=== PATIENT | female | born 1970 | race Two or more races ===

== ENCOUNTER 2018-02-14 22:46 | Emergency (ER) | payer SELFPAY ==
[2018-02-14] MEDS ORDERED: HYDROMORPHONE HCL INJ/PF 2 MG/ML AMPULE IV ONE (23:23)
[2018-02-14] MEDS ORDERED: NORMAL SALINE 1000 ML 1,000 ML IV ONE (23:24)
[2018-02-14] MEDS ORDERED: ONDANSETRON HCL INJ/PF 4 MG/2 ML SDV IV ONE (23:24)
--- NOTE | 2018-02-14 23:27 | ER Document Report ---
ED General - General Chief Complaint: Abdominal Pain Stated Complaint: UPPER ABDOMINAL PAIN Time Seen by Provider: 02/14/18 23:18 Notes: Patient is a pleasant 47-year-old female presents with complaint of epigastric pain she says it feels like pancreatitis. She said the pain for 3 days. She has been very nauseous but has not vomited. She says she has been trying to just the ice cream and nothing else. She has a history of recurrent idiopathic pancreatitis. Last time she had it was in 2011. She does not drink alcohol. She has had a cholecystectomy. She denies any black or tarry stools. She has had some mild diarrhea. No blood in her stool. She does have history of gastric ulcers. She is currently on Zantac for that. No other complaints at this time. TRAVEL OUTSIDE OF THE [place] IN LAST 30 DAYS: No - Related Data Allergies/Adverse Reactions: No Known Allergies Allergy (Verified 06/05/12 16:08) Past Medical History - Social History Smoking Status: Unknown if Ever Smoked Drug Abuse: None Lives with: Alone Family History: Reviewed & Not Pertinent Patient has suicidal ideation: No Patient has homicidal ideation: No Renal/ Medical History: Denies: Hx Peritoneal Dialysis Past Surgical History: Reports: Hx Section - x3 - Immunizations Hx Diphtheria, Pertussis, Tetanus Vaccination: Yes - 2011 Hx Pneumococcal Vaccination: 11/02/00 Review of Systems - Review of Systems Notes: My Normal Review Basic REVIEW OF SYSTEMS: CONSTITUTIONAL : Had some chills at home. EENT: Denies eye, ear, throat, or mouth pain or symptoms. Denies nasal or sinus congestion. CARDIOVASCULAR: Denies chest pain. RESPIRATORY: Denies cough, cold, or chest congestion. Denies shortness of breath, difficulty breathing, or wheezing. GASTROINTESTINAL: Epigastric abdominal pain. Some nausea. GENITOURINARY: Denies difficulty urinating, painful urination, burning, frequency, or blood in urine. FEMALE GENITOURINARY: Denies vaginal bleeding, abnormal or irregular periods. MUSCULOSKELETAL: Denies neck or back pain or joint pain or swelling. SKIN: Denies rash or skin lesions. NEUROLOGICAL: Denies altered mental status or loss of consciousness. Denies headache. Denies weakness or paralysis or loss of use of either side. Denies problems with gait or speech. Denies sensory or motor loss. ALL OTHER SYSTEMS REVIEWED AND NEGATIVE. Physical Exam - Vital signs Vitals: Temp Pulse Resp BP Pulse Ox 98.0 F 96 18 135/63 H 98 02/14/18 22:49 02/14/18 22:49 02/14/18 22:49 02/14/18 22:49 02/14/18 22:49 - Notes Notes: General Appearance: Well nourished, alert, cooperative, no acute distress, moderate obvious discomfort. Vitals: reviewed, See vital signs table. Eyes: PERRL, EOMI, Conjuctiva clear Mouth: No decreasd moisture Lungs: No wheezing, No rales, No rhonci, No accessory muscle use, good air exchange bilaterally. Heart: Normal rate, Regular rythm, No murmur, no rub Abdomen: Normal BS, soft, No rigidity, moderate epigastric abdominal tenderness to palpation., No guarding, no rebound, Extremities: strength 5/5 in all extremities, good pulses in all extremities, no swelling or tenderness in the extremities, no edema. Skin: warm, dry, appropriate color, no rash Neuro: speech clear, oriented x 3, normal affect, responds appropriately to questions. Course - Re-evaluation Re-evalutation: 02/15/18 01:48 Patient's pain is relieved with a GI cocktail. Patient says she just recently moved back here from [place]. I will give referral to GI doctor as I think she will probably benefit from endoscopy as I suspect her pain is either related to a nonbleeding ulcer or gastritis. I suspect is because her lipase and workup for pancreatitis is negative, her pain was relieved with GI cocktail , and she has a history of previous ulcers in the past. She has no evidence of bleeding from the ulcers. Form to return to ER if she has worsening pain, fevers, vomiting blood, or she feels unwell. Patient agrees with plan will be discharged home. Dictation of this chart was performed using voice recognition software; therefore, there may be some unintended grammatical errors. - Vital Signs Vital signs: Temp Pulse Resp BP Pulse Ox 98.0 F 96 18 135/63 H 98 02/14/18 22:49 02/14/18 22:49 02/14/18 22:49 02/14/18 22:49 02/14/18 22:49 - Laboratory Result Diagrams: 02/14/18 23:40 02/14/18 23:40 Laboratory results interpreted by me: 02/14/18 23:40 Sodium 145.2 H Procedures - Additional Procedures peripheral IV Additional Procedures: IV insertion Notes: 02/15/18 01:13 Nursing staff was unable to get a peripheral IV. I placed a peripheral IV in the right antecubital fossa under ultrasound guidance on first attempt. 20- gauge IV Angiocath was placed. Dark nonpulsatile blood was expressed from the IV. IV flushes well without complications. Discharge - Discharge Clinical Impression: Abdominal pain Qualifiers: Abdominal location: epigastric Qualified Code(s): R10.13 - Epigastric pain Condition: Good Disposition: HOME, SELF-CARE Instructions: Oral Narcotic Medication ([facility]) Additional Instructions: Based on your history, lab results, and location of your pain, I suspect your pain is being caused by a gastritis or nonbleeding ulcer. Please take the medications as prescribed. Please continue to take your Zantac at home. Please follow up with the GI doctor (Either Dr. Butterfield or Dr. Lazaro). Please avoid spicy foods, acidic foods, and fatty foods. Please eat a very bland diet. Please return to the ER immediately if you have vomiting of blood, intractable pain, fevers, black stools, or feel unwell. Prescriptions: Tramadol HCl [Ultram 50 mg Tablet] 50 mg PO Q6HP PRN #12 tablet PRN Reason: Sucralfate [Carafate Susp 1 Gm/10 Ml Udcup] 1 gm PO ACHS 10 Days udc Referrals: MARISELA LAZARO MD [ACTIVE STAFF] - Follow up in 3-5 days (call this morning to make a follow up appointment) TERE BUTTERFIELD MD [ACTIVE STAFF] - Follow up in 3-5 days (call this morning to make a follow up appointment)
[2018-02-14 23:50] LABS: ABSOLUTE EOSINOPHILS # (AUTO) 0.2 10^3/uL (0.0-0.6); ABSOLUTE LYMPHOCYTES (AUTO) 3.4 10^3/uL (0.5-4.7); ABSOLUTE MONOCYTES (AUTO) 0.9 10^3/uL (0.1-1.4); ABSOLUTE NEUT (AUTO) 3.3 10^3/uL (1.7-8.2); BASOPHILS % (AUTO) 0.5 % (0-2); EOSINOPHILS % (AUTO) 2.1 % (0-6); HEMATOCRIT 41.2 % (36.0-47.0); HEMOGLOBIN 14.1 g/dL (12.0-15.5); LYMPHOCYTES % (AUTO) 43.9 % (13-45); MEAN CORPUSCULAR HEMOGLOBIN 30.1 pg (27.0-33.4); MEAN CORPUSCULAR HGB CONC 34.2 g/dL (32.0-36.0); MEAN CORPUSCULAR VOLUME 88 fl (80-97); MONOCYTES % (AUTO) 11.2 % (3-13); PLATELET COUNT 278 10^3/uL (150-450); RED BLOOD COUNT 4.67 10^6/uL (3.72-5.28); RED CELL DISTRIBUTION WIDTH 13.4 % (11.5-14.0); SEGMENTED NEUTROPHILS % (AUTO) 42.3 % (42-78); TOTAL CELLS COUNTED % (AUTO) 100 %; WHITE BLOOD COUNT 7.8 10^3/uL (4.0-10.5)
[2018-02-15 00:02] LABS: ALANINE AMINOTRANSFERASE 25 U/L (9-52); ALBUMIN 4.6 g/dL (3.5-5.0); ALKALINE PHOSPHATASE 104 U/L (38-126); ANION GAP 13 (5-19); ASPARTATE AMINO TRANSFERASE 27 U/L (14-36); BILIRUBIN,DIRECT 0.1 mg/dL (0.0-0.4); BILIRUBIN,TOTAL 0.4 mg/dL (0.2-1.3); BLOOD UREA NITROGEN 13 mg/dL (7-20); CALCIUM 9.9 mg/dL (8.4-10.2); CARBON DIOXIDE 27 mmol/L (22-30); CHLORIDE 105 mmol/L (98-107); GLUCOSE 98 mg/dL (75-110); LIPASE 158.2 U/L (23-300); POTASSIUM 3.9 mmol/L (3.6-5.0); SODIUM 145.2 mmol/L (137-145); TOTAL PROTEIN 7.8 g/dL (6.3-8.2)
[2018-02-15] MEDS ORDERED: FENTANYL CITRATE INJ/PF 100 MCG/2 ML AMPUL IV ONE (00:57)
[2018-02-15] MEDS ORDERED: LIDOCAINE 2% VISCOUS SOLN 20 ML UDCUP PO ONE (00:57)
[2018-02-15] MEDS ORDERED: METOCLOPRAMIDE HCL ORAL SOLN 10 MG/10 ML UDCUP PO ONE (00:57)
[2018-02-15] MEDS ORDERED: MAG HYDROX/AL HYDROX/SIMETH SUSP 30 ML UDCUP PO ONE (00:57)
[2018-02-15 02:07] VITALS: BP 126/72
== END 2018-02-15 02:05 | disposition home or self-care (01) ==
LOC: ER 22:46
DX: R10.13 Epigastric pain (principal); R11.0 Nausea; R19.7 Diarrhea, unspecified; Z90.49 Acquired absence of other specified parts of digestive tract; Z79.899 Other long term (current) drug therapy
CPT/HCPCS: 99284; 96361; 96374; 96375; 36415; 83690; 84703; 85025; 80053; J3010; J3490; J1170; J2405; J7030

== ENCOUNTER 2018-03-25 18:39 | Emergency (ER) | payer SELFPAY ==
--- NOTE | 2018-03-25 20:01 | ER Document Report ---
ED Medical Screen (RME) - General Chief Complaint: Abdominal Pain Stated Complaint: STOMACH PAIN Time Seen by Provider: 03/25/18 19:54 Notes: RAPID MEDICAL EVALUATION DISCLOSURE I have seen this patient as part of a Rapid Medical Evaluation and, if applicable, placed any initially appropriate orders. The patient will be seen and fully evaluated, including a full history and physical exam, by a provider ( in Main ED or Fast Track) when a room becomes available. 47-year-old female PMH pancreatitis diverticulosis status post cholecystectomy here with complaints of left upper and lower abdominal pain ongoing for the past 2 weeks progressively worsening. The pain is worse with eating. She has had some nausea but no vomiting diarrhea fevers chills. She wonders if this may be another "diverticulosis flare". EXAM Left lower greater than upper quadrant TTP No epigastric tenderness No peritoneal signs TRAVEL OUTSIDE OF THE [place] IN LAST 30 DAYS: No - Related Data Allergies/Adverse Reactions: No Known Allergies Allergy (Verified 06/05/12 16:08) Past Medical History - Social History Frequency of alcohol use: None Renal/ Medical History: Denies: Hx Peritoneal Dialysis Past Surgical History: Reports: Hx Section - x3 - Immunizations Hx Diphtheria, Pertussis, Tetanus Vaccination: Yes - 2011 Physical Exam - Vital signs Vitals: Temp Pulse Resp BP Pulse Ox 99.3 F 90 16 121/74 100 03/25/18 18:52 03/25/18 18:52 03/25/18 18:52 03/25/18 18:52 03/25/18 18:52 Course - Vital Signs Vital signs: Temp Pulse Resp BP Pulse Ox 99.3 F 90 16 121/74 100 03/25/18 18:52 03/25/18 18:52 03/25/18 18:52 03/25/18 18:52 03/25/18 18:52
[2018-03-25 20:31] LABS: ABSOLUTE BASOPHILS # (AUTO) 0.1 10^3/uL (0.0-0.2); ABSOLUTE EOSINOPHILS # (AUTO) 0.3 10^3/uL (0.0-0.6); ABSOLUTE LYMPHOCYTES (AUTO) 2.9 10^3/uL (0.5-4.7); ABSOLUTE MONOCYTES (AUTO) 0.8 10^3/uL (0.1-1.4); ABSOLUTE NEUT (AUTO) 4.5 10^3/uL (1.7-8.2); BASOPHILS % (AUTO) 0.7 % (0-2); HEMATOCRIT 35.4 % (36.0-47.0); HEMOGLOBIN 12.2 g/dL (12.0-15.5); LYMPHOCYTES % (AUTO) 34.3 % (13-45); MEAN CORPUSCULAR HEMOGLOBIN 30.2 pg (27.0-33.4); MEAN CORPUSCULAR HGB CONC 34.5 g/dL (32.0-36.0); MEAN CORPUSCULAR VOLUME 88 fl (80-97); PLATELET COUNT 247 10^3/uL (150-450); RED BLOOD COUNT 4.04 10^6/uL (3.72-5.28); RED CELL DISTRIBUTION WIDTH 13.1 % (11.5-14.0); TOTAL CELLS COUNTED % (AUTO) 100 %; WHITE BLOOD COUNT 8.4 10^3/uL (4.0-10.5)
[2018-03-25] MEDS ORDERED: METOCLOPRAMIDE HCL INJ/PF 10 MG/2 ML SDV IV ONE (20:53)
[2018-03-25] MEDS ORDERED: MORPHINE SULFATE 10 MG/ML INJ IV ONE (20:53)
[2018-03-25] MEDS ORDERED: NORMAL SALINE 1000 ML 1,000 ML IV ONE (20:54)
--- NOTE | 2018-03-25 20:55 | ER Document Report ---
ED GI/ - General Chief Complaint: Abdominal Pain Stated Complaint: STOMACH PAIN Time Seen by Provider: 03/25/18 19:54 Notes: Patient is a 47-year-old female comes emergency department for chief complaint of pain in her left abdomen, pain is both lower and upper abdomen, intermittently very sharp, she reports nausea but denies vomiting, she has had a bowel movement within the past 24 hours which appeared normal. She states that she has had worsening pain for the past 1-2 weeks but over the past 2 days it has become significantly worse. She has had diverticulosis/diverticulitis in the past, she has also had pancreatitis, she has had cholecystectomy. She denies any other surgeries. She states that she does not smoke, drink alcohol, and she has tried eating a bland diet but over the past couple of days she has resorted to just eating ice cream because everything else hurts when she eats. She has had an endoscopy and colonoscopy 10 years ago which were normal. TRAVEL OUTSIDE OF THE [place] IN LAST 30 DAYS: No - Related Data Allergies/Adverse Reactions: No Known Allergies Allergy (Verified 06/05/12 16:08) Past Medical History - General Information source: Patient - Social History Smoking Status: Never Smoker Frequency of alcohol use: None Lives with: Family Family History: Reviewed & Not Pertinent Patient has suicidal ideation: No Patient has homicidal ideation: No Renal/ Medical History: Denies: Hx Peritoneal Dialysis Past Surgical History: Reports: Hx Section - x3 - Immunizations Hx Diphtheria, Pertussis, Tetanus Vaccination: Yes - 2011 Hx Pneumococcal Vaccination: 11/02/00 Review of Systems - Review of Systems Constitutional: No symptoms reported EENT: No symptoms reported Cardiovascular: No symptoms reported Respiratory: No symptoms reported Gastrointestinal: See HPI Genitourinary: No symptoms reported Female Genitourinary: No symptoms reported Musculoskeletal: No symptoms reported Skin: No symptoms reported Hematologic/Lymphatic: No symptoms reported Neurological/Psychological: No symptoms reported Physical Exam - Vital signs Vitals: Temp Pulse Resp BP Pulse Ox 99.3 F 90 16 121/74 100 03/25/18 18:52 03/25/18 18:52 03/25/18 18:52 03/25/18 18:52 03/25/18 18:52 Interpretation: Normal - General General appearance: Other - Patient occasionally grimaces and appears mildly uncomfortable - HEENT Head: Normocephalic, Atraumatic Eyes: Normal Pupils: PERRL - Respiratory Respiratory status: No respiratory distress Chest status: Nontender Breath sounds: Normal Chest palpation: Normal - Cardiovascular Rhythm: Regular Heart sounds: Normal auscultation Murmur: No - Abdominal Inspection: Normal Distension: No distension Bowel sounds: Normal Tenderness: Tender - Tender in the mid left and left lower quadrant, reproducible, no guarding, no rigidity, no rebound tenderness, remaining abdomen is benign Organomegaly: No organomegaly - Back Back: Normal, Nontender - Extremities General upper extremity: Normal inspection, Nontender, Normal color, Normal ROM , Normal temperature General lower extremity: Normal inspection, Nontender, Normal color, Normal ROM , Normal temperature, Normal weight bearing. No: Bud's sign - Neurological Neuro grossly intact: Yes Cognition: Normal Orientation: AAOx4 Edy Coma Scale Eye Opening: Spontaneous [place] Coma Scale Verbal: Oriented [place] Coma Scale Motor: Obeys Commands [place] Coma Scale Total: 15 Speech: Normal Motor strength normal: LUE, RUE, LLE, RLE Sensory: Normal - Psychological Associated symptoms: Normal affect, Normal mood - Skin Skin Temperature: Warm Skin Moisture: Dry Skin Color: Normal Course - Re-evaluation Re-evalutation: Patient has specific left mid to lower quadrant tenderness which is reproducible. She appears uncomfortable until she is medicated. Symptoms have been progressively worsening. No bloody bowel movements, fever, vomiting, or concerning vital signs. CBC, chemistry reviewed, unremarkable. Urinalysis unremarkable. CAT scan was ordered from triage, this is reviewed, shows small colonic diverticulosis but no overt diverticulitis, abscess, or acute etiology. Discussed with patient. She is feeling much better after medications, she is able to tolerate p.o. without any difficulty, discussed her presentation, symptoms, decision was made to cover her with Cipro and Flagyl for suspected developing diverticulitis, she has close follow-up already established, discussed return precautions in detail, patient requests tramadol for pain and she was provided with this, patient states satisfaction and agreement with plan. - Vital Signs Vital signs: Temp Pulse Resp BP Pulse Ox 99.3 F 83 18 110/72 98 03/25/18 18:52 03/26/18 00:33 03/26/18 00:33 03/26/18 00:33 03/26/18 00:33 - Laboratory Result Diagrams: 03/25/18 20:17 03/25/18 21:00 Laboratory results interpreted by me: 03/25/18 03/25/18 20:17 21:00 Hct 35.4 L Glucose 111 H Discharge - Discharge Clinical Impression: Left sided abdominal pain Condition: Stable Disposition: HOME, SELF-CARE Additional Instructions: Your workup does not show any concerning or surgical abnormalities, however your evaluation is consistent with developing diverticulitis. We are treating with Cipro and Flagyl antibiotics, take tramadol if needed for pain, start with clear fluids the first day and then progress to bland and then normal diet. Follow-up on Thursday with your provider as planned. Return if you worsen including vomiting, fever of 100.4 or greater, bloody stools, returned or worsening abdominal pain, or any other concerning symptoms. Prescriptions: Ciprofloxacin HCl [Cipro 500 mg Tablet] 500 mg PO BID #14 tablet Metronidazole [Flagyl 500 mg Tablet] 500 mg PO TID #21 tablet Tramadol HCl 50 mg PO ASDIR PRN #20 tablet PRN Reason: Forms: Return to Work
[2018-03-25 21:31] LABS: ALANINE AMINOTRANSFERASE 22 U/L (9-52); ALBUMIN 3.9 g/dL (3.5-5.0); ALKALINE PHOSPHATASE 85 U/L (38-126); ANION GAP 8 (5-19); ASPARTATE AMINO TRANSFERASE 22 U/L (14-36); BILIRUBIN,DIRECT 0.2 mg/dL (0.0-0.4); BILIRUBIN,TOTAL 0.2 mg/dL (0.2-1.3); BLOOD UREA NITROGEN 11 mg/dL (7-20); CALCIUM 9.2 mg/dL (8.4-10.2); CARBON DIOXIDE 28 mmol/L (22-30); CHLORIDE 106 mmol/L (98-107); GLUCOSE 111 mg/dL (75-110); SODIUM 141.7 mmol/L (137-145); TOTAL PROTEIN 7.3 g/dL (6.3-8.2)
--- NOTE | 2018-03-25 22:54 | RADIOLOGY REPORT (SQ) ---
EXAM DESCRIPTION: CT ABDOMEN PELVIS WITH IV CONTRAST CLINICAL HISTORY: 47 years Female, LLQ pain; eval diverticulitis Comparison: None. Technique: IV contrast. Coronal and sagittal reformat. This exam was performed according to our departmental dose-optimization program, which includes automated exposure control, adjustment of the mA and/or kV according to patient size and/or use of iterative reconstruction technique.[facility]: Dose Right [facility]: CareDose [facility]: Dose Right [facility]: Teradose 4D [facility]: [employer] LIMITATIONS: None. Findings: No free fluid. Small colonic diverticulosis. Normal appendix. Mild lower thoracic disc desiccation. Inferior thorax, liver, cholecystectomy clips, pancreas, spleen, adrenals, renal system, gastrointestinal tract, pelvic organs, lymphatics, vasculature, and musculoskeleton appear otherwise unremarkable. IMPRESSION: No acute findings. Small colonic diverticulosis.
[2018-03-25 23:45] LABS: APPEARANCE,URINE CLEAR; BILIRUBIN,URINE NEGATIVE (NEGATIVE); COLOR,URINE COLORLESS; GLUCOSE, URINE NEGATIVE (NEGATIVE); KETONES,URINE NEGATIVE (NEGATIVE); LEUKOCYTE ESTERASE,URINE NEGATIVE (NEGATIVE); NITRITE,URINE NEGATIVE (NEGATIVE); PROTEIN,URINE NEGATIVE (NEGATIVE); URINE SPECIFIC GRAVITY 1.016; UROBILINOGEN,URINE NEGATIVE mg/dL (<2.0)
[2018-03-26 00:36] VITALS: BP 110/72
== END 2018-03-26 00:33 | disposition home or self-care (01) ==
LOC: ER 18:39
DX: R10.12 Left upper quadrant pain (principal); R10.32 Left lower quadrant pain; R11.0 Nausea; Z87.19 Personal history of other diseases of the digestive system; Z90.49 Acquired absence of other specified parts of digestive tract
CPT/HCPCS: 99284; 96361; 96374; 96375; 36415; 83690; 84703; 85025; 81025; 80053; 81001; 74177; J2765; J2270; J7030